=== PATIENT | female | born 1940 | race Caucasian/White ===

== ENCOUNTER 2016-12-25 01:48 | Emergency (ER) | payer MEDICARE, BC ==
[~2016-12-25] VITALS: Ht 170.2 cm; Wt 67.0 kg
[~2016-12-25 01:48] MED LIST: ASPI81TA82 PO; HYDR12.56 PO; HYDR500C PO; LEVO50TA4 PO; LOSA50TA PO
[2016-12-25 01:55] VITALS: BP 201/95; PULSE 66; RESP 18; TEMP 97.9; O2SAT 100
[2016-12-25] MEDS ORDERED: LOSA50TA PO (02:20)
[2016-12-25] MEDS ORDERED: ASPI81CH37 CHEW (02:20)
[2016-12-25] MEDS ORDERED: HYDR500C PO (02:25)
[2016-12-25] MEDS ORDERED: HYDR12.57 PO (02:25)
[2016-12-25] MEDS ORDERED: LEVO50TA4 PO (02:25)
[2016-12-25 02:50] VITALS: BP 186/84; PULSE 65; RESP 18; O2SAT 100
[2016-12-25 03:46] VITALS: BP 180/98; PULSE 72; RESP 17; O2SAT 99
--- NOTE | 2016-12-25 03:47 | PD ---
HPI Chief Complaint: Hypertension Time Seen by Provider: 03:47 Travel History International Travel<30 days: No Contact w/Intl Traveler<30days: No Traveled to known affect area: No History of Present Illness HPI 76-year-old female presents to the emergency department by private transportation the care of her spouse for evaluation of elevated blood pressure. Patient reportedly was having difficulty falling asleep this evening because of headache and feeling agitated. checked her blood pressure noted to be elevated. Using rest and relaxation techniques her blood pressure temporarily diminished to 150/90 but immediately return to markedly elevated levels of 200/90. Because of persistent high blood pressure patient is now being evaluated. Patient does not report any change in mentation, visual disturbance, change in speech, neck pain, chest pain, back pain, palpitations, shortness breath, nausea, vomiting or new upper or lower extremity numbness tingling weakness or ataxia of gait. Patient did not take any additional blood pressure medication other than her daily dose of antihypertensive losartan and HCTZ. PFSH Past Medical History Narrative Medical Hypertension, thrombocytosis, hepatitis, musculoskeletal lumbar disease; nursing notes reviewed Hx Anticoagulant Therapy: Yes (asa) Cancer: No Cardiovascular Problems: No Diabetes: No Endocrine: No Genitourinary: No Hepatitis: Yes (hep A) Hiatal Hernia: No Hypertension: Yes Immune Disorder: No Musculoskeletal: Yes (sacral and lumbar) Neurologic: No Psychiatric: No Reproductive: No Respiratory: No Thyroid Disease: No Tetanus Vaccination: < 5 Years Influenza Vaccination: No Past Surgical History AICD: No Joint Replacement: No Oral Surgery: Yes (tonsils, wisdom teeth) Pacemaker: No Other Surgery: Yes Social History Alcohol Use: No Tobacco Use: No Substance Use: No Allergies-Medications (Allergen,Severity, Reaction): Coded Allergies: Sulfa (Verified Allergy, Severe, Burning, 12/25/16) to scalp Penicillin (Verified Allergy, Mild, Rash, 12/25/16) Reported Meds & Prescriptions Reported Meds & Active Scripts Active Reported Hydrea (Hydroxyurea) 500 Mg Cap 500 Mg PO BID Hydrochlorothiazide 12.5 Mg Cap 12.5 Mg PO DAILY Levothyroxine (Levothyroxine Sodium) 50 Mcg Tab 50 Mcg PO DAILY Losartan (Losartan Potassium) 50 Mg Tab 50 Mg PO BID Aspirin Low Dose (Aspirin) 81 Mg Chew 81 Mg CHEW DAILY Review of Systems Except as stated in HPI: all other systems reviewed are Neg General / Constitutional: No: Fever, Chills Eyes: No: Visual changes HENT: Positive: Headaches, No: Neck Stiffness, Neck Pain Cardiovascular: No: Chest Pain or Discomfort Respiratory: No: Shortness of Breath Gastrointestinal: No: Nausea, Vomiting Genitourinary: No: Pelvic Pain Musculoskeletal: No: Pain Skin: No Rash Neurologic: No: Weakness Psychiatric: No: Anxiety Hematologic/Lymphatic: No: Lymph Node Enlargement Physical Exam Narrative GENERAL: SKIN: Warm and dry. HEAD: Atraumatic. Normocephalic. EYES: Pupils equal and round. No scleral icterus. No injection or drainage. ENT: No nasal bleeding or discharge. Mucous membranes pink and moist. NECK: Trachea midline. No JVD. CARDIOVASCULAR: Regular rate and rhythm. RESPIRATORY: No accessory muscle use. Clear to auscultation. Breath sounds equal bilaterally. GASTROINTESTINAL: Abdomen soft, non-tender, nondistended. Hepatic and splenic margins not palpable. MUSCULOSKELETAL: Extremities without clubbing, cyanosis, or edema. No obvious deformities. NEUROLOGICAL: Awake and alert. No obvious cranial nerve deficits. Motor grossly within normal limits. Five out of 5 muscle strength in the arms and legs. Normal speech. PSYCHIATRIC: Appropriate mood and affect; insight and judgment normal. Data Data Last Documented VS Vital Signs Date Time Temp Pulse Resp B/P Pulse Ox O2 Delivery O2 Flow Rate FiO2 12/25/16 04:46 62 16 142/74 Room Air 12/25/16 04:33 99 12/25/16 01:55 97.9 Orders ^ Saline Lock (12/25/16 03:47) Ct Brain W/O Iv Contrast(Rout) (12/25/16 ) Ondansetron Inj (Zofran Inj) (12/25/16 04:00) Clonidine (Catapres) (12/25/16 04:00) Urinalysis - C+S If Indicated (12/25/16 04:08) Labs Laboratory Tests Test 12/25/16 04:10 Urine Color STRAW Urine Turbidity CLEAR Urine pH 6.5 Urine Specific [place] 1.004 Urine Protein NEG mg/dL Urine Glucose (UA) NEG mg/dL Urine Ketones NEG mg/dL Urine Occult Blood TRACE Urine Nitrite NEG Urine Bilirubin NEG Urine Leukocyte Esterase NEG Urine RBC 0-3 /hpf Urine Squamous Epithelial 0-5 /hpf Cells Urine Transitional Epithelial /hpf Cells Microscopic Urinalysis Comment CULT NOT INDICATED MDM Medical Decision Making Medical Screen Exam Complete: Yes Emergency Medical Condition: Yes Medical Record Reviewed: Yes Interpretation(s) Urinalysis: Values within normal range Last Impressions Head CT 12/25/16 0000 Signed Impressions: Service Date/Time: Sunday, December 25, 2016 04:15 - CONCLUSION: No acute intracranial abnormality is identified. Cesar Kaur MD Differential Diagnosis Hypertension, hypertensive urgency, cephalgia, ICH, UTI Narrative Course Patient administered Zofran 4 mg along with clonidine 0.[address] brain noncontrast reveals no acute abnormalities; urinalysis normal Patient blood pressure improved 142/74. Patient does not report any headache at this time; no nausea; reports she feels symptomatically improved and is resting comfortably. Patient will be given prescription for clonidine to be used as needed for blood pressure greater than Diagnosis Primary Impression: HTN (hypertension) Qualified Code: I10 - Essential hypertension Additional Impression: Headache Qualified Code: G44.209 - Tension-type headache, not intractable, unspecified chronicity pattern Referrals: Primary Care Physician call for appointment Patient Instructions: General Instructions Additional Instructions: Continue current medications this was a prescribed Use clonidine/Catapres antihypertensive medication as prescribed on an as- needed basis for breakthrough hypertension Follow-up with your primary care provider Return to the emergency for any concerns or change in condition Med/Other Pt SpecificInfo: Prescription(s) given Scripts Clonidine 0.1 Mg Tab0.1 Mg PO Q12HR PRN (SBP>180, DBP>95) #7 TAB Ref 0 Prov:Joanie Myers MD 12/25/16 Disposition: 01 DISCHARGE HOME Condition: Stable Joanie Myers MD Dec 25, 2016 03:47
[2016-12-25] MEDS ORDERED: ONDANSETRON HCL 4 MG/2 ML VIAL IV PUSH ONE (04:00)
[2016-12-25] MEDS ORDERED: cloNIDine HCL 0.1 MG TAB PO ONE (04:00)
[2016-12-25 04:17] LABS: BLOOD, URINE TRACE (NEG); GLUCOSE,URINE NEG (NEG); KETONE, URINE NEG (NEG); NITRITE,URINE NEG (NEG); PH, URINE 6.5 (5.0-8.5)
[2016-12-25 04:33] VITALS: BP 187/88; PULSE 66; RESP 16; O2SAT 99
[2016-12-25 04:36] LABS: URINE COLOR STRAW (YELLW/STRAW)
[2016-12-25 04:39] LABS: RBC, URINE 0-3 /hpf (0-3); SQUAMOUS EPITHELIAL CELL URINE 0-5 /hpf (0-5)
--- NOTE | 2016-12-25 04:39 | RADRPT ---
EXAM DATE/TIME: 12/25/2016 04:15 [facility] COMPARISON: No previous studies available for comparison. INDICATIONS : Cephalgia. Elevated blood pressure. RADIATION DOSE: 56.32 CTDIvol (mGy) MEDICAL HISTORY : Hypertension. Hepatitis A. SURGICAL HISTORY : None. ENCOUNTER: Initial ACUITY: 4 - 6 days PAIN SCALE: 5/10 LOCATION: Bilateral temporal TECHNIQUE: Multiple contiguous axial images were obtained of the head. Using automated exposure control and adj ustment of the mA and/or kV according to patient size, radiation dose was kept as low as reasonably a chievable to obtain optimal diagnostic quality images. DICOM format image data is available electro nically for review and comparison. FINDINGS: CEREBRUM: There is mild cerebral atrophy. Ventricles are normal. There is an old lacune in the right basal gang jami. No evidence of midline shift, mass lesion, hemorrhage or acute infarction. No extra-axial flui d collections are seen. POSTERIOR FOSSA: The cerebellum and brainstem are intact. The 4th ventricle is midline. The cerebellopontine angle i s unremarkable. EXTRACRANIAL: Visualized sinuses are clear. SKULL: The calvaria is intact. No evidence of skull fracture. CONCLUSION: No acute intracranial abnormality is identified. Cesar Kaur MD on December 25, 2016 at 4:36 Board Certified Radiologist. This report was verified electronically.
[2016-12-25 04:40] LABS: COMMENT (UR) CULT NOT INDICATED; CULTURE IF INDICATED CULT NOT INDICATED
[2016-12-25 04:46] VITALS: BP 142/74; PULSE 62; RESP 16
[2016-12-25] MEDS ORDERED: CLON0.1T PO (05:00)
[2016-12-25 05:02] VITALS: BP 131/67; PULSE 61; RESP 16
== END 2016-12-25 05:10 | disposition home or self-care (01) ==
LOC: PHED 01:48
DX: I10 Essential (primary) hypertension (principal); G44.209 Tension-type headache, unspecified, not intractable; Z79.82 Long term (current) use of aspirin; Z79.899 Other long term (current) drug therapy
CPT/HCPCS: 70450; 81001; 96374; 99285; J2405

== ENCOUNTER 2016-12-31 07:00 | Inpatient (IN) | payer MEDICARE, BC ==
[2016-12-31] VITALS (8 sets, daily range): BP systolic 145–175; BP diastolic 69–81; PULSE 69–94; RESP 16–20; TEMP 97.5–98.6; O2SAT 99–100
[~2016-12-31] VITALS: Ht 168.9 cm; Wt 69.6 kg
[~2016-12-31 07:00] MED LIST changes: +ASPI81CH37 CHEW; -ASPI81TA82 PO; +CLON0.1T PO; -HYDR12.56 PO; +HYDR12.57 PO
[2016-12-31] MEDS ORDERED: SODIUM CHLOR 0.9% 1000 ML INJ 1,000 ML IV SCH (07:21)
[2016-12-31] MEDS ORDERED: ONDANSETRON HCL 4 MG/2 ML VIAL IVP ONE (07:30)
[2016-12-31] MEDS ORDERED: SODIUM CHLORIDE 0.9% FLUSH 10 ML FLUSH IV FLUSH PRN ×2 (07:30→09:45)
--- NOTE | 2016-12-31 07:39 | PD ---
HPI Chief Complaint: GI Complaint Time Seen by Provider: 07:20 Travel History International Travel<30 days: No Contact w/Intl Traveler<30days: No Traveled to known affect area: No History of Present Illness HPI PCP IS DR LOCKWOOD. PATIENT STATES THAT SHE HAS A H/O CONSTIPATION, BUT OVER PAST 3 DAYS SHE HAS TRIED LEMON JUICE AND COFFEE ENEMAS, BUT SHE HAS ONLY HAD A SMALL BM AND THEN PATIENT STARTED TO TREMBLE/QUIVER WHICH IS WHEN SHE WAS BROUGHT INTO EMERGENCY DEPT. UNRELATED BUT MENTION BY PATIENT((PATIENT IS QUITE NERVOUS, AND KEEPS STATING THAT ANTIBIOTICS DON'T WORK FOR HER, THAT SHE HAD A MRSA INFECTION WHICH SHE RECEIVED 4 DIFFERENT PCN AND "NONE WORKED" FINALLY SHE WAS GIVEN A SULFA AND HER "SCALP FELT LIKE IT WAS ON FIRE"--- PATIENT AND BOTH DENIED THAT PATIENT EVER DEVELOPED RASH/HIVES/SOB/ TONGUE OR LIP SWELLING)) PFSH Past Medical History Hx Anticoagulant Therapy: Yes (asa) Cancer: No Cardiovascular Problems: No Endocrine: No Genitourinary: No Hepatitis: Yes (hep A) Hiatal Hernia: No Hypertension: Yes Immune Disorder: No Musculoskeletal: Yes (sacral and lumbar) Neurologic: No Psychiatric: No Reproductive: No Respiratory: No Thyroid Disease: No ?: Not Past Surgical History Joint Replacement: No Oral Surgery: Yes (tonsils, wisdom teeth) Pacemaker: No Other Surgery: Yes Social History Alcohol Use: No Tobacco Use: No Substance Use: No Allergies-Medications (Allergen,Severity, Reaction): Coded Allergies: Sulfa (Verified Allergy, Severe, Burning, 12/31/16) to scalp Penicillin (Verified Allergy, Mild, Rash, 12/31/16) Reported Meds & Prescriptions Reported Meds & Active Scripts Active Lactulose Liq (Lactulose) 10 Gm/15 Ml Soln 30 Ml PO Q6H PRN Clonidine (Clonidine HCl) 0.1 Mg Tab 0.1 Mg PO Q12HR PRN Reported Hydrea (Hydroxyurea) 500 Mg Cap 500 Mg PO BID Hydrochlorothiazide 12.5 Mg Cap 12.5 Mg PO DAILY Levothyroxine (Levothyroxine Sodium) 50 Mcg Tab 50 Mcg PO DAILY Losartan (Losartan Potassium) 50 Mg Tab 50 Mg PO BID Aspirin Low Dose (Aspirin) 81 Mg Chew 81 Mg CHEW DAILY Review of Systems Except as stated in HPI: all other systems reviewed are Neg Gastrointestinal: Positive: Nausea, Abdominal Pain Physical Exam Narrative GENERAL: PATIENT NOTICED TO BE TREMBLING THROUGHOUT BODY AND HYPERVENTILATING DURING HISTORY SKIN: Warm and dry. HEAD: Atraumatic. Normocephalic. EYES: Pupils equal and round. No scleral icterus. No injection or drainage. ENT: No nasal bleeding or discharge. Mucous membranes pink and moist. NECK: Trachea midline. No JVD. CARDIOVASCULAR: Regular rate and rhythm. RESPIRATORY: No accessory muscle use. Clear to auscultation. Breath sounds equal bilaterally. GASTROINTESTINAL: Abdomen soft, non-tender, nondistended. Hepatic and splenic margins not palpable. MUSCULOSKELETAL: Extremities without clubbing, cyanosis, or edema. No obvious deformities. NEUROLOGICAL: Awake and alert. No obvious cranial nerve deficits. Motor grossly within normal limits. Five out of 5 muscle strength in the arms and legs. Normal speech. PSYCHIATRIC: Appropriate mood and affect; insight and judgment normal. Data Data Last Documented VS Vital Signs Date Time Temp Pulse Resp B/P Pulse Ox O2 Delivery O2 Flow Rate FiO2 12/31/16 07:43 99 Room Air 12/31/16 07:39 97.5 12/31/16 07:08 78 20 175/76 Orders Complete Blood Count With Diff (12/31/16 07:21) Comprehensive Metabolic Panel (12/31/16 07:21) Lipase (12/31/16 07:21) Prothrombin Time / Inr (Pt) (12/31/16 07:21) Act Partial Throm Time (Ptt) (12/31/16 07:21) Urinalysis - C+S If Indicated (12/31/16 07:21) Iv Access Insert/Monitor (12/31/16 07:21) Ecg Monitoring (12/31/16 07:21) Oximetry (12/31/16 07:21) NPO (12/31/16 07:21) Ondansetron Inj (Zofran Inj) (12/31/16 07:30) Sodium Chlor 0.9% 1000 Ml Inj (Ns 1000 M (12/31/16 07:21) Sodium Chloride 0.9% Flush (Ns Flush) (12/31/16 07:30) Electrocardiogram (12/31/16 07:21) Troponin I (12/31/16 07:21) Ct Abd/Pel W/O Iv Contrast (12/31/16 07:21) Lorazepam Inj (Ativan Inj) (12/31/16 07:45) Potassium Chlor 20 Meq Premix (Kcl 20 Me (12/31/16 08:45) Sodium Chlor 0.9% 1000 Ml Inj (Ns 1000 M (12/31/16 08:45) Iv Access Insert/Monitor (12/31/16 08:41) Labs Laboratory Tests Test 12/31/16 12/31/16 07:30 07:37 Urine Collection Type CLEAN CATCH Urine Color YELLOW Urine Turbidity CLEAR Urine pH 7.0 Urine Specific [place] 1.020 Urine Protein 100 mg/dL Urine Glucose (UA) NEG mg/dL Urine Ketones 40 mg/dL Urine Occult Blood TRACE Urine Nitrite NEG Urine Bilirubin NEG Urine Leukocyte Esterase NEG Urine RBC 0-3 /hpf Urine Squamous Epithelial 0-5 /hpf Cells Microscopic Urinalysis Comment CULT NOT INDICATED Urine Collection Time "30 White Blood Count 5.7 TH/MM3 Red Blood Count 3.48 MIL/MM3 Hemoglobin 13.4 GM/DL Hematocrit 40.1 % Mean Corpuscular Volume 115.0 FL Mean Corpuscular Hemoglobin 38.4 PG Mean Corpuscular Hemoglobin 33.4 % Concent Red Cell Distribution Width 11.4 % Platelet Count 365 TH/MM3 Mean Platelet Volume 7.1 FL Neutrophils (%) (Auto) 78.3 % Lymphocytes (%) (Auto) 15.7 % Monocytes (%) (Auto) 5.5 % Eosinophils (%) (Auto) 0.1 % Basophils (%) (Auto) 0.4 % Neutrophils # (Auto) 4.4 TH/MM3 Lymphocytes # (Auto) 0.9 TH/MM3 Monocytes # (Auto) 0.3 TH/MM3 Eosinophils # (Auto) 0.0 TH/MM3 Basophils # (Auto) 0.0 TH/MM3 CBC Comment DIFF FINAL Differential Comment Prothrombin Time 10.9 SEC Prothromb Time International 1.0 RATIO Ratio Activated Partial 27.5 SEC Thromboplast Time Sodium Level 123 MEQ/L Potassium Level 2.7 MEQ/L Chloride Level 85 MEQ/L Carbon Dioxide Level 21.4 MEQ/L Anion Gap 17 MEQ/L Blood Urea Nitrogen 9 MG/DL Creatinine 0.90 MG/DL Estimat Glomerular Filtration 61 ML/MIN Rate Random Glucose 148 MG/DL Calcium Level 9.5 MG/DL Total Bilirubin 4.1 MG/DL Aspartate Amino Transf 21 U/L (AST/SGOT) Alanine Aminotransferase 26 U/L (ALT/SGPT) Alkaline Phosphatase 84 U/L Troponin I LESS THAN 0.02 NG/ML Total Protein 8.1 GM/DL Albumin 4.4 GM/DL Lipase 213 U/L MDM Medical Decision Making Medical Screen Exam Complete: Yes Emergency Medical Condition: Yes Medical Record Reviewed: Yes Interpretation(s) NSR 82, LAE, MOTION ARTIFACT SO DIFFICULT TO ASSESS IF WHAT APPEARS TO BE ST DEPRESSIONS ARE INDEED SUCH, HOWEVER THERE IS NO STEMI PATTERN AT THIS POINT Differential Diagnosis SBO V VOLVULUS V ILEUS V CONSTIPATION Narrative Course ONCE PATIENT RECEIVED ATIVAN, TREMBLING STOPPED AND NAUSEA STOPPED WELL. MOST LIKELY SYMPTOMS DUE TO STRESS REACTION/ADRENALINE RELEASE. CBC WNL, AND CT ONLY POSITIVE FOR GALLSTONE BUT NEG FOR SBO/ILEUS/VOLVULUS AT THIS POINT AND SHOWS AN EMPTY RECTAL VAULT SO NO E/O FECAL IMPACTION......HOWEVER, PROBABLY DUE TO OVERLY AGGRESSIVE MULTIPLE ENEMAS BY PATIENT MAY HAVE CONTRIBUTED TO HYPONATREMIA AND HYPOKALEMIA FOR WHICH SHE WILL BE OBSERVED Diagnosis Primary Impression: ACUTE HYPONATREMIA Additional Impression: ACUTE HYPOKALEMIA Admitting Information Admitting Physician Requests: Observation Patient Instructions: General Instructions Condition: Stable Bernard Haro MD Dec 31, 2016 07:38 Bernard Haro MD Dec 31, 2016 07:38
[2016-12-31 07:45] LABS: AUTOMATED NEUTROPHIL # 4.4 TH/MM3 (1.8-7.7); BASOPHIL % 0.4 % (0.0-2.0); EOSINOPHIL % 0.1 % (0.0-4.0); HEMATOCRIT 40.1 % (35.0-46.0); LYMPH % 15.7 % (9.0-44.0); LYMPHOCYTE # 0.9 TH/MM3 (1.0-4.8); MEAN CORPUSCULAR HEMOGLOBIN 38.4 PG (27.0-34.0); MEAN CORPUSCULAR HGB CONC 33.4 % (32.0-36.0); MONO % 5.5 % (0.0-8.0); NEUT % 78.3 % (16.0-70.0); PLATELET COUNT 365 TH/MM3 (150-450); RED BLOOD COUNT 3.48 MIL/MM3 (4.00-5.30); RED CELL DISTRIBUTION WIDTH 11.4 % (11.6-17.2); WHITE BLOOD COUNT 5.7 TH/MM3 (4.0-11.0)
[2016-12-31] MEDS ORDERED: LORazepam 2 MG/ML VIAL IV PUSH ONE (07:45)
[2016-12-31 07:46] LABS: HEMO FLAGS DIFF FINAL
[2016-12-31 07:57] LABS: APTT (PATIENT) 27.5 SEC (24.3-30.1); PROTHROMBIN TIME - PATIENT 10.9 SEC (9.8-11.6)
--- NOTE | 2016-12-31 08:01 | RADRPT ---
EXAM DATE/TIME: 12/31/2016 07:38 [facility] COMPARISON: No previous studies available for comparison. INDICATIONS : Nausea and vomiting with diffuse abdominal pressure. ORAL CONTRAST: No oral contrast ingested. RADIATION DOSE: 7.11 CTDIvol (mGy) MEDICAL HISTORY : Hypertension. Hepatitis A. Anti-coagulant therapy. SURGICAL HISTORY : None. ENCOUNTER: Initial ACUITY: 1 day PAIN SCALE: 3/10 LOCATION: abdomen TECHNIQUE: Volumetric scanning of the abdomen and pelvis was performed. Using automated exposure control and ad justment of the mA and/or kV according to patient size, radiation dose was kept as low as reasonably achievable to obtain optimal diagnostic quality images. DICOM format image data is available electro nically for review and comparison. FINDINGS: The lung measures are clear. The liver, spleen, pancreas and adrenals are unremarkable. Calcified gallstones are present in the prominent gallbladder. Small 1 cm calcified mass is present upper pole of the right kidney. The left kidney is unremarkable Moderate vascular calcifications are evident Pelvic contents show scattered diverticuli without inflammatory changes or free fluid. There is no intra-hernia Moderate degenerative changes are present in the lower lumbar spine with a bone island in the right i lium. CONCLUSION: 1. Gallstones prominent gallbladder without inflammatory changes 2. Moderate vascular calcifications 3. Degenerative changes lumbar spine. David Coyne MD FACR on December 31, 2016 at 7:56 Board Certified Radiologist. This report was verified electronically.
[2016-12-31 08:13] LABS: BLOOD, URINE TRACE (NEG); GLUCOSE,URINE NEG (NEG); KETONE, URINE 40 mg/dL (NEG); NITRITE,URINE NEG (NEG)
[2016-12-31 08:15] LABS: METHOD OF COLLECTION CLEAN CATCH; URINE COLOR YELLOW (YELLW/STRAW)
[2016-12-31 08:16] LABS: COMMENT (UR) CULT NOT INDICATED; CULTURE IF INDICATED CULT NOT INDICATED; RBC, URINE 0-3 /hpf (0-3); SQUAMOUS EPITHELIAL CELL URINE 0-5 /hpf (0-5)
[2016-12-31 08:39] LABS: ALKALINE PHOSPHATASE 84 U/L (45-117); ALT (GPT) 26 U/L (10-53); ANION GAP 17 MEQ/L (5-15); AST (GOT) 21 U/L (15-37); BICARBONATE 21.4 MEQ/L (21.0-32.0); BLOOD UREA NITROGEN 9 MG/DL (7-18); CHLORIDE 85 MEQ/L (98-107); GLOMERULAR FILTRATION RATE 61 ML/MIN (>89); TOTAL BILIRUBIN ADULT 4.1 MG/DL (0.2-1.0)
[2016-12-31 08:41] LABS: SODIUM (NA) 123 MEQ/L (136-145)
[2016-12-31] MEDS ORDERED: LACT10SO PO (08:41)
[2016-12-31 08:42] LABS: POTASSIUM 2.7 MEQ/L (3.5-5.1)
[2016-12-31] MEDS ORDERED: SODIUM CHLOR 0.9% 1000 ML INJ 1,000 ML IV ONE (08:45)
[2016-12-31] MEDS ORDERED: POTASSIUM CHLOR 20 MEQ PREMIX 100 ML IV ONE (08:45)
[2016-12-31] MEDS: SODIUM CHLOR 0.9% 1000 ML INJ 1,000 ML IV SCH ×2 (09:33→20:08)
[2016-12-31] MEDS ORDERED: NALOXONE HCL 0.4 MG/ML AMP IV PRN (09:45)
[2016-12-31] MEDS ORDERED: ACETAMINOPHEN 325 MG TAB PO PRN (09:45)
[2016-12-31] MEDS ORDERED: POTASSIUM CHLORIDE 20 MEQ CONTROLLED RELEASE TAB PO ONE (09:45)
[2016-12-31] MEDS ORDERED: ONDANSETRON HCL 4 MG/2 ML VIAL IVP PRN (09:45)
[2016-12-31] MEDS ORDERED: POTASSIUM PHOSPHATE INJ 30 MMOL in SODIUM CHLOR 0.9% 250 ML INJ 250 ML IV ONE (10:00)
[2016-12-31] MEDS: HEPARIN SODIUM - SQ 10,000 UNITS/ML VIAL SQ SCH ×2 (11:20→21:23)
--- NOTE | 2016-12-31 11:30 | MH ---
cc: JIMBO WYNN MD DATE OF ADMISSION: 12/31/2016 CHIEF COMPLAINT: Nausea and vomiting. HISTORY OF PRESENT ILLNESS: This is a 76-year female with past medical-surgical history significant for lower back pain, history of tonsils removed. [place] teeth removed, history of hypertension, hypothyroidism and history of hepatitis A in the past. She came to the [facility] Emergency Room complaining of nausea and vomiting. She said she was not able to keep anything down. She has had constipation for the last three days. She tried lemon juice. She has had only a small bowel movement. She has some mild abdominal discomfort but no abdominal pain. No fever or chills or cough. No shortness of breath or chest pain. No blood in stool or black stool. No urinary tract infection symptoms. No neurological symptoms. Other than that, nothing significant. PAST MEDICAL HISTORY / PAST SURGICAL HISTORY: As dictated above. SOCIAL HISTORY: She denies smoking, drinking or taking any drugs. She lives at home with her . She is a retired schoolteacher. FAMILY HISTORY: Nothing significant. ALLERGIES: 1. SULFA. 2. PENICILLIN. MEDICATIONS: 1. Lactulose 10 mL q. 6 hours PRN constipation. 2. Clonidine 0.1 milligrams p.o. twice a day. 3. Hydroxyurea 500 milligrams twice a day. 4. Hydrochlorothiazide 12.5 milligrams p.o. daily. 5. Lotrisone 850 micrograms p.o. daily. 6. Losartan 50 milligrams p.o. twice a day. 7. Aspirin 81 milligrams p.o. daily. REVIEW OF SYSTEMS: Positive for abdominal discomfort, nausea, vomiting, feeling weak and tired. All other review of systems are negative. PHYSICAL EXAMINATION: GENERAL: This is a 76-year-old female lying on the bed not in acute distress. VITAL SIGNS: Temperature 97.5, heart rate 78, respirations 20, blood pressure 175/76, O2 saturation 99% room air. HEAD, EYES, EARS, NOSE, THROAT: Normocephalic and atraumatic. Extraocular muscles intact. Pupils equal, round and reactive to light and accommodation. Oral mucosa moist. NECK: The neck is supple. No visible thyromegaly or neck mass. Trachea is central. CARDIOVASCULAR: Regular rate and rhythm. RESPIRATORY: Clear to auscultation bilaterally. ABDOMEN: Abdomen soft and nontender. Bowel sounds audible. EXTREMITIES: No cyanosis or clubbing. Full range of motion of all extremities. NEUROLOGIC: Awake, alert and oriented times four. No focal deficits. SKIN: Warm and dry. PSYCHIATRIC: The patient is cooperative. Mood and affect are normal. LABS: CBC is totally unremarkable except for RBC count of 3.4 (low). MCV 115. MCH is 38.4. RDW is 11.4. Basic metabolic profile totally unremarkable except for sodium of 123 (low), potassium 2.7 (low), chloride 85 (low), anion gap 17. GFR 61. Glucose 148. Troponin I less than 0.02. Liver function tests are normal except for total bilirubin of 4.1 (high). Lipase is normal. Pt 10.9, INR 1.0, PTT 27.5. Urine examination showed a high protein 100 (high), trace of occult blood. IMAGING STUDIES: CT abdomen and pelvis was done and shows gallstones and prominent gallbladder without inflammatory changes, moderate vascular calcification, degenerative changes lumbar spine. ASSESSMENT AND PLAN: 1. This is a 77-year-old female who presented to the emergency room and diagnosed with nausea and vomiting with mild abdominal discomfort. The patient has gallstones. I will consult general surgery for their recommendations for gallstones and also gastroenterology. 2. Hypokalemia. Will replace potassium. 3. Hyponatremia. Will replace the sodium. 4. History of hypertension. Continue home medications. 5. History of hypothyroidism. Continue with levothyroxine. Check TSH and free T4. 6. DVT prophylaxis with heparin 5000 units subcutaneous twice a day. 7. GI prophylaxis. Protonix 40 milligrams p.o. daily. We are going to manage the patient on a daily basis and make recommendations on a daily basis. Jimbo Wynn MD EA/OMKAR /10:44 AM /11:09 AM
[2016-12-31] MEDS ORDERED: MAGNESIUM CITRATE SOLN 300 ML BTL PO ONE (12:15)
--- NOTE | 2016-12-31 12:15 | PD.CONS ---
HPI Service General surgery Consult Requested By Dr. Block Reason for Consult Gallstones Primary Care Physician Russell Poon MD History of Present Illness The patient is a 76-year-old female with a long-standing history of constipation who presents with a history of 2 weeks of nausea and vomiting since yesterday. She has not had a bowel movement since when she had a "colonic". It sounds like she is may be dependent on enemas for bowel movements. She has a history of hepatitis a and she and her say that she has "yellow jaundiced". They state that her skin sometimes appears yellow. She was evaluated in the emergency department and noted to have significant electrolyte abnormalities. Also her bilirubin was 4 with otherwise normal LFTs. CT scan of the abdomen and pelvis was essentially normal aside from gallstones. She denies epigastric or right upper quadrant pain. Of note, the patient states the current symptoms she is having are exactly consistent with previous episodes of constipation although slightly worse. Review of Systems Constitutional: DENIES: Fever, Chills Eyes: DENIES: Eye inflammation, Eye pain Respiratory: DENIES: Cough, Shortness of breath Cardiovascular: DENIES: Chest pain, Palpitations Gastrointestinal: COMPLAINS OF: Constipation, Nausea Integumentary: DENIES: Pruritus, Rash Neurologic: DENIES: Paresthesias, Seizures Past Family Social History Past Medical History Chronic constipation Hypertension Hepatitis A Hypothyroidism Past Surgical History Tonsillectomy Reported Medications Reported Meds & Active Scripts Active Clonidine (Clonidine HCl) 0.1 Mg Tab 0.1 Mg PO Q12HR PRN Reported Hydrea (Hydroxyurea) 500 Mg Cap 500 Mg PO BID Hydrochlorothiazide 12.5 Mg Cap 12.5 Mg PO DAILY Levothyroxine (Levothyroxine Sodium) 50 Mcg Tab 50 Mcg PO DAILY Losartan (Losartan Potassium) 50 Mg Tab 50 Mg PO BID Aspirin Low Dose (Aspirin) 81 Mg Chew 81 Mg CHEW DAILY Allergies: Coded Allergies: Sulfa (Verified Allergy, Severe, Burning, 12/31/16) to scalp Penicillin (Verified Allergy, Mild, Rash, 12/31/16) Active Ordered Medications Current Medications Medications (Trade) Dose Ordered Sig/Stacey Route Start Time Stop Time Status Last Admin Sodium Chloride 1,000 ml @ 125 mls/hr Q8H IV 12/31/16 07:21 12/31/16 15:20 12/31/16 08:03 (NS 1000 ml Inj) 1,000 ml @ 100 mls/hr Q10H IV 12/31/16 09:33 12/31/16 09:33 (NS Flush) 2 ml UNSCH PRN IV FLUSH 12/31/16 09:45 (NS Flush) 2 ml BID IV FLUSH 12/31/16 21:00 (Tylenol) 650 mg Q4H PRN PO 12/31/16 09:45 (Zofran Inj) 4 mg Q6H PRN IVP 12/31/16 09:45 (Heparin Inj) 5,000 units Q12H SQ 12/31/16 10:00 12/31/16 11:20 Naloxone HCl 0.4 mg 0.4 mg UNSCH PRN IV 12/31/16 09:45 (Potassium Phosphate Inj/NS 250 ml Inj) 260 ml @ 43.333 mls/ hr ONCE ONCE IV 12/31/16 10:00 12/31/16 15:59 Family History Noncontributory Social History No alcohol tobacco or drug use. She is and her is present. Physical Exam Vital Signs Vital Signs Date Time Temp Pulse Resp B/P Pulse Ox O2 Delivery O2 Flow Rate FiO2 12/31/16 11:23 82 16 152/69 99 12/31/16 07:43 99 Room Air 12/31/16 07:39 97.5 12/31/16 07:08 78 20 175/76 99 Physical Exam GENERAL: Awake and alert. No acute distress. Cooperative. HEAD: Normocephalic. Atraumatic. EYES: Pupils equal round and reactive to light bilaterally. CHEST: Lungs clear to auscultation bilaterally with no wheezing or rhonchi. No respiratory distress. CARDIOVASCULAR: Regular rate and rhythm. ABDOMEN: Mild epigastric tenderness to palpation. Otherwise soft and nontender. Rectal: No masses. Minimal stool. Sphincter tone normal. EXTREMITIES: No cyanosis or edema. SKIN: Warm, dry, mild jaundice Laboratory Laboratory Tests Test 12/31/16 12/31/16 07:30 07:37 Urine Collection Type CLEAN CATCH Urine Color YELLOW Urine Turbidity CLEAR Urine pH 7.0 Urine Specific [place] 1.020 Urine Protein 100 Urine Glucose (UA) NEG Urine Ketones 40 Urine Occult Blood TRACE Urine Nitrite NEG Urine Bilirubin NEG Urine Leukocyte Esterase NEG Urine RBC 0-3 Urine Squamous Epithelial 0-5 Cells Microscopic Urinalysis Comment CULT NOT INDICATED Urine Collection Time 07"30 White Blood Count 5.7 Red Blood Count 3.48 Hemoglobin 13.4 Hematocrit 40.1 Mean Corpuscular Volume 115.0 Mean Corpuscular Hemoglobin 38.4 Mean Corpuscular Hemoglobin 33.4 Concent Red Cell Distribution Width 11.4 Platelet Count 365 Mean Platelet Volume 7.1 Neutrophils (%) (Auto) 78.3 Lymphocytes (%) (Auto) 15.7 Monocytes (%) (Auto) 5.5 Eosinophils (%) (Auto) 0.1 Basophils (%) (Auto) 0.4 Neutrophils # (Auto) 4.4 Lymphocytes # (Auto) 0.9 Monocytes # (Auto) 0.3 Eosinophils # (Auto) 0.0 Basophils # (Auto) 0.0 CBC Comment DIFF FINAL Differential Comment Prothrombin Time 10.9 Prothromb Time International 1.0 Ratio Activated Partial 27.5 Thromboplast Time Sodium Level 123 Potassium Level 2.7 Chloride Level 85 Carbon Dioxide Level 21.4 Anion Gap 17 Blood Urea Nitrogen 9 Creatinine 0.90 Estimat Glomerular Filtration 61 Rate Random Glucose 148 Calcium Level 9.5 Magnesium Level 1.5 Total Bilirubin 4.1 Aspartate Amino Transf 21 (AST/SGOT) Alanine Aminotransferase 26 (ALT/SGPT) Alkaline Phosphatase 84 Troponin I LESS THAN 0.02 Total Protein 8.1 Albumin 4.4 Lipase 213 Thyroid Stimulating Hormone 5.090 3rd Gen Result Diagram: 12/31/1637 12/31/16736 Imaging Last Impressions Abdomen/Pelvis CT 12/31/16720 Signed Impressions: Service Date/Time: Saturday, December 31, 2016 07:38 - CONCLUSION: 1. Gallstones prominent gallbladder without inflammatory changes 2. Moderate vascular calcifications 3. Degenerative changes lumbar spine. David Coyne MD FACR Assessment and Plan Assessment and Plan 76-year-old female with nausea vomiting and constipation. I reviewed the CT images. Gallstones: I will check an ultrasound of the gallbladder to see if there is associated inflammation. She does have mild epigastric pain and it is possible her symptoms are secondary to gallbladder disease, although she states her symptoms are exactly similar to previous episodes of constipation. She has elevated bilirubin but not the other LFTs. Hyperbilirubinemia: Unsure of the etiology. Possibly but not likely related to gallbladder disease. May require further workup per gastroenterology. Constipation: No stool in the rectal vault probably secondary to multiple enemas. I will order magnesium citrate and place her on clear liquids. Delmar Ann MD Dec 31, 2016 12:15
--- NOTE | 2016-12-31 14:34 | PD.CONS ---
HPI History of Present Illness This is a 76 year old female who has for the past week had multiple problems including blood pressure that was elevated nausea and vomiting abdominal discomfort the patient denies any abdominal pain the abdominal discomfort is reported in the midabdomen and it does move about she also reports chills but no fever she also reports diarrhea and constipation but no melena or hematochezia and no mucus or blood in her stools she had been in her usual state of health up until earlier in the week she has never had any liver problems in the past on admission through the ER she is noted to have gallstones and her bilirubin is slightly elevated otherwise her CAT scan was unremarkable and most notable on labs is the hyponatremia and hypokalemia PFSH Past Medical History Chronic constipation Hypertension Hepatitis A Hypothyroidism Past Surgical History Tonsillectomy Coded Allergies: Sulfa (Verified Allergy, Severe, Burning, 12/31/16) to scalp Penicillin (Verified Allergy, Mild, Rash, 12/31/16) Medications Clonidine (Clonidine HCl) 0.1 Mg Tab 0.1 Mg PO Q12HR PRN Hydrea (Hydroxyurea) 500 Mg Cap 500 Mg PO BID Hydrochlorothiazide 12.5 Mg Cap 12.5 Mg PO DAILY Levothyroxine (Levothyroxine Sodium) 50 Mcg Tab 50 Mcg PO DAILY Losartan (Losartan Potassium) 50 Mg Tab 50 Mg PO BID Aspirin Low Dose (Aspirin) 81 Mg Chew 81 Mg CHEW DAILY Family History Noncontributory Social History Negative for alcohol or tobacco Review of Systems ROS Review of systems Patient denies any headache dizziness blurry vision, denies any chest pain shortness of breath cough fever chills, Denies any palpitations or fatigue denies any polyuria dysuria hematuria, denies any numbness tingling or weakness, denies any skin rash pruritus or jaundice, denies any easy bruising or bleeding tendency, denies any recent change in mood GI Exam Vitals I&O Vital Signs Date Time Temp Pulse Resp B/P Pulse Ox O2 Delivery O2 Flow Rate FiO2 12/31/16 12:00 97.5 73 18 168/80 100 12/31/16 11:23 82 16 152/69 99 12/31/16 07:43 99 Room Air 12/31/16 07:39 97.5 12/31/16 07:08 78 20 175/76 99 I/O 7/29/17 7/29/12/30/16 12/31/16 12/31/16 12/31/16 07:00 15:00 23:00 07:00 15:00 23:00 Intake Total 1200 ml Balance 1200 ml Intake IV Total 1200 ml # Voids 1 Imaging Last 48 hours Impressions Abdomen/Pelvis CT 12/31/16 0721 Signed Impressions: Service Date/Time: Saturday, December 31, 2016 07:38 - CONCLUSION: 1. Gallstones prominent gallbladder without inflammatory changes 2. Moderate vascular calcifications 3. Degenerative changes lumbar spine. David Coyne MD FACR Laboratory Test 12/31/16 12/31/16 07:30 07:37 Urine Collection Type CLEAN CATCH Urine Color YELLOW Urine Turbidity CLEAR Urine pH 7.0 Urine Specific [place] 1.020 Urine Protein 100 mg/dL Urine Glucose (UA) NEG mg/dL Urine Ketones 40 mg/dL Urine Occult Blood TRACE Urine Nitrite NEG Urine Bilirubin NEG Urine Leukocyte Esterase NEG Urine RBC 0-3 /hpf Urine Squamous Epithelial 0-5 /hpf Cells Microscopic Urinalysis Comment CULT NOT INDICATED Urine Collection Time "30 White Blood Count 5.7 TH/MM3 Red Blood Count 3.48 MIL/MM3 Hemoglobin 13.4 GM/DL Hematocrit 40.1 % Mean Corpuscular Volume 115.0 FL Mean Corpuscular Hemoglobin 38.4 PG Mean Corpuscular Hemoglobin 33.4 % Concent Red Cell Distribution Width 11.4 % Platelet Count 365 TH/MM3 Mean Platelet Volume 7.1 FL Neutrophils (%) (Auto) 78.3 % Lymphocytes (%) (Auto) 15.7 % Monocytes (%) (Auto) 5.5 % Eosinophils (%) (Auto) 0.1 % Basophils (%) (Auto) 0.4 % Neutrophils # (Auto) 4.4 TH/MM3 Lymphocytes # (Auto) 0.9 TH/MM3 Monocytes # (Auto) 0.3 TH/MM3 Eosinophils # (Auto) 0.0 TH/MM3 Basophils # (Auto) 0.0 TH/MM3 CBC Comment DIFF FINAL Differential Comment Prothrombin Time 10.9 SEC Prothromb Time International 1.0 RATIO Ratio Activated Partial 27.5 SEC Thromboplast Time Sodium Level 123 MEQ/L Potassium Level 2.7 MEQ/L Chloride Level 85 MEQ/L Carbon Dioxide Level 21.4 MEQ/L Anion Gap 17 MEQ/L Blood Urea Nitrogen 9 MG/DL Creatinine 0.90 MG/DL Estimat Glomerular Filtration 61 ML/MIN Rate Random Glucose 148 MG/DL Calcium Level 9.5 MG/DL Magnesium Level 1.5 MG/DL Total Bilirubin 4.1 MG/DL Aspartate Amino Transf 21 U/L (AST/SGOT) Alanine Aminotransferase 26 U/L (ALT/SGPT) Alkaline Phosphatase 84 U/L Troponin I LESS THAN 0.02 NG/ML Total Protein 8.1 GM/DL Albumin 4.4 GM/DL Lipase 213 U/L Thyroid Stimulating Hormone 5.090 uIU/ML 3rd Gen Physical Examination HEENT: Pupils round and reactive to light; normocephalic; atraumatic; no jaundice. Throat is clear. NECK: Neck is supple, no JVD, no lymphadenopathy. CHEST: Chest is clear to auscultation and percussion. CARDIAC: Regular rate and rhythm with no murmur gallop or rubs. ABDOMEN: Soft, nondistended, nontender; no hepatosplenomegaly; bowel sounds are present in all four quadrants. EXTREMITIES: No clubbing, cyanosis, or edema. SKIN: Normal; no rash; no jaundice. DIGITAL PERFORMANCE ANALYST: No focal deficits; alert and oriented times three. Assessment and Plan Plan Abdominal discomfort with complaints of nausea and vomiting with alternating diarrhea and constipation with reported chills but no fever with noted hyperbilirubinemia but unremarkable CT except for gallstones with hyponatremia and hypokalemia At this point will proceed with an upper endoscopy We'll also obtain an MRCP Monitor labs We will need to correct electrolytes Further recommendations shall depend on the findings of the above Marshall Peres MD Dec 31, 2016 14:34
--- NOTE | 2016-12-31 15:20 | EKG ---
Date Performed: 12/31/2016 Time Performed: 07:33:08 PTAGE: 76 years EKG: Sinus rhythm POSSIBLE LEFT ATRIAL ENLARGEMENT BORDERLINE LEFT AXIS DEVIATION MODERATE ST DEPRESSION ABNORMAL ECG NO PREVIOUS TRACING DOCTOR: Scar Bae Interpretating Date/Time 12/31/2016 15:18:40
[2016-12-31 17:14] LABS: FREE T4 1.91 NG/DL (0.76-1.46)
--- NOTE | 2016-12-31 20:24 | PD.CONS ---
HPI Service Nephrology Consult Requested By Dr. Block Reason for Consult Hypokalemia and hyponatremia Primary Care Physician Russell Poon MD History of Present Illness Patient is 76-year-old white female with history of hypertension who had been having nausea and vomiting and could not keep anything down, a CAT scan in the emergency showed gallstones. She is not having any abdominal pain, she is on IV hydration normal saline with potassium replacement. Past Family Social History Allergies: Coded Allergies: Sulfa (Verified Allergy, Severe, Burning, 12/31/16) to scalp Penicillin (Verified Allergy, Mild, Rash, 12/31/16) Past Medical History Chronic constipation Hypertension Hepatitis A Hypothyroidism Past Surgical History Tonsillectomy Reported Medications Reported Meds & Active Scripts Active Clonidine (Clonidine HCl) 0.1 Mg Tab 0.1 Mg PO Q12HR PRN Reported Hydrea (Hydroxyurea) 500 Mg Cap 500 Mg PO BID Hydrochlorothiazide 12.5 Mg Cap 12.5 Mg PO DAILY Levothyroxine (Levothyroxine Sodium) 50 Mcg Tab 50 Mcg PO DAILY Losartan (Losartan Potassium) 50 Mg Tab 50 Mg PO BID Aspirin Low Dose (Aspirin) 81 Mg Chew 81 Mg CHEW DAILY Active Ordered Medications Current Medications Medications (Trade) Dose Ordered Sig/Stacey Route Start Time Stop Time Status Last Admin (NS 1000 ml Inj) 1,000 ml @ 100 mls/hr Q10H IV 12/31/16 09:33 12/31/16 20:08 (NS Flush) 2 ml UNSCH PRN IV FLUSH 12/31/16 09:45 (NS Flush) 2 ml BID IV FLUSH 12/31/16 21:00 (Tylenol) 650 mg Q4H PRN PO 12/31/16 09:45 (Zofran Inj) 4 mg Q6H PRN IVP 12/31/16 09:45 (Heparin Inj) 5,000 units Q12H SQ 12/31/16 10:00 12/31/16 11:20 (Narcan Inj) 0.4 mg UNSCH PRN IV 12/31/16 09:45 Family History Noncontributory Social History Denies smoking or alcohol use Physical Exam Vital Signs Vital Signs Date Time Temp Pulse Resp B/P Pulse Ox O2 Delivery O2 Flow Rate FiO2 12/31/16 16:00 84 12/31/16 16:00 97.7 71 18 145/75 100 7/30/17 12:00 94 12/31/16 12:00 97.5 73 18 168/80 100 12/31/16 11:23 82 16 152/69 99 12/31/16 07:43 99 Room Air 12/31/16 07:39 97.5 12/31/16 07:08 78 20 175/76 99 Physical Exam GENERAL: Well-nourished, well-developed patient. SKIN: Warm and dry. HEAD: Normocephalic. EYES: No scleral icterus. No injection or drainage. NECK: Supple, trachea midline. No JVD or lymphadenopathy. CARDIOVASCULAR: Regular rate and rhythm without murmurs, gallops, or rubs. RESPIRATORY: Breath sounds equal bilaterally. No accessory muscle use. GASTROINTESTINAL: Abdomen soft, non-tender, nondistended. EXTREMITIES: No cyanosis, or edema. NEUROLOGICAL: Awake, alert, and oriented x 3. Non-focal. Laboratory Laboratory Tests Test 12/31/16 12/31/16 12/31/16 07:30 07:37 10:31 Urine Collection Type CLEAN CATCH Urine Color YELLOW Urine Turbidity CLEAR Urine pH 7.0 Urine Specific [place] 1.020 Urine Protein 100 Urine Glucose (UA) NEG Urine Ketones 40 Urine Occult Blood TRACE Urine Nitrite NEG Urine Bilirubin NEG Urine Leukocyte Esterase NEG Urine RBC 0-3 Urine Squamous Epithelial 0-5 Cells Microscopic Urinalysis Comment CULT NOT INDICATED Urine Collection Time 07"30 White Blood Count 5.7 Red Blood Count 3.48 Hemoglobin 13.4 Hematocrit 40.1 Mean Corpuscular Volume 115.0 Mean Corpuscular Hemoglobin 38.4 Mean Corpuscular Hemoglobin 33.4 Concent Red Cell Distribution Width 11.4 Platelet Count 365 Mean Platelet Volume 7.1 Neutrophils (%) (Auto) 78.3 Lymphocytes (%) (Auto) 15.7 Monocytes (%) (Auto) 5.5 Eosinophils (%) (Auto) 0.1 Basophils (%) (Auto) 0.4 Neutrophils # (Auto) 4.4 Lymphocytes # (Auto) 0.9 Monocytes # (Auto) 0.3 Eosinophils # (Auto) 0.0 Basophils # (Auto) 0.0 CBC Comment DIFF FINAL Differential Comment Prothrombin Time 10.9 Prothromb Time International 1.0 Ratio Activated Partial 27.5 Thromboplast Time Sodium Level 123 Potassium Level 2.7 Chloride Level 85 Carbon Dioxide Level 21.4 Anion Gap 17 Blood Urea Nitrogen 9 Creatinine 0.90 Estimat Glomerular Filtration 61 Rate Random Glucose 148 Calcium Level 9.5 Magnesium Level 1.5 Total Bilirubin 4.1 Aspartate Amino Transf 21 (AST/SGOT) Alanine Aminotransferase 26 (ALT/SGPT) Alkaline Phosphatase 84 Troponin I LESS THAN 0.02 Total Protein 8.1 Albumin 4.4 Lipase 213 Free Thyroxine 1.91 Thyroid Stimulating Hormone 5.090 3rd Gen Urine Osmolality 128 Result Diagram: 12/31/1637 12/31/1637 Imaging Last Impressions Abdomen/Pelvis CT 12/31/16720 Signed Impressions: Service Date/Time: Sunday, December 31, 2016 07:38 - CONCLUSION: 1. Gallstones prominent gallbladder without inflammatory changes 2. Moderate vascular calcifications 3. Degenerative changes lumbar spine. David Coyne MD FACR Assessment and Plan Problem List: (1) Hyponatremia Plan: This is due to dehydration from nausea and vomiting and diuretic thiazide type continue replace normal saline at 100 cc an hour Monitor BMP (2) Hypokalemia Plan: Patient has given replacement She was on diuretic which was discontinued (3) HTN (hypertension) Plan: Stable Polina Costa MD Dec 31, 2016 20:23
[2016-12-31] MEDS: SODIUM CHLORIDE 0.9% FLUSH 10 ML FLUSH IV FLUSH SCH (21:21)
[2016-12-31] MEDS: NS + KCL 20 MEQ INJ 1,000 ML IV SCH (21:21)
[2017-01-01 04:00] VITALS: BP 142/77; PULSE 77; RESP 18; TEMP 98.1; O2SAT 100
[2017-01-01] MEDS: NS + KCL 20 MEQ INJ 1,000 ML IV SCH (06:26)
[2017-01-01 06:42] LABS: AUTOMATED NEUTROPHIL # 1.4 TH/MM3 (1.8-7.7); BASOPHIL # 0.1 TH/MM3 (0-0.2); BASOPHIL % 1.7 % (0.0-2.0); EOSINOPHIL % 0.4 % (0.0-4.0); HEMATOCRIT 32.9 % (35.0-46.0); HEMO FLAGS DIFF FINAL; LYMPH % 51.8 % (9.0-44.0); LYMPHOCYTE # 1.9 TH/MM3 (1.0-4.8); MEAN CELL VOLUME 116.8 FL (80.0-100.0); MEAN CORPUSCULAR HEMOGLOBIN 39.5 PG (27.0-34.0); MEAN CORPUSCULAR HGB CONC 33.8 % (32.0-36.0); MONO % 10.2 % (0.0-8.0); NEUT % 35.9 % (16.0-70.0); PLATELET COUNT 242 TH/MM3 (150-450); RED BLOOD COUNT 2.82 MIL/MM3 (4.00-5.30); RED CELL DISTRIBUTION WIDTH 11.7 % (11.6-17.2); WHITE BLOOD COUNT 3.8 TH/MM3 (4.0-11.0)
[2017-01-01 06:57] LABS: BICARBONATE 26.8 MEQ/L (21.0-32.0); INDIRECT BILIRUBIN 2.3 MG/DL (0.0-0.8); POTASSIUM 3.6 MEQ/L (3.5-5.1); TOTAL BILIRUBIN ADULT 2.7 MG/DL (0.2-1.0)
[2017-01-01 07:23] VITALS: BP 142/77; PULSE 77; RESP 18; TEMP 98.1; O2SAT 100
--- NOTE | 2017-01-01 08:45 | HHI.PR ---
Subjective History of Present Illness Patient nausea/ vomiting better getting endoscopy today GI/ General surgery input noted s/p Gall bladder ultrasound. Review of Systems Constitutional Constitutional: Fatigue, Weakness GI/Abdomen GI/Abdominal Exam: Nausea Vitals/Results Intake & Output 12/31/16 12/31/16 01/01/17 15:00 23:00 07:00 Intake Total 1200 ml 800 ml Balance 1200 ml 800 ml Intake IV Total 1200 ml 800 ml # Voids 1 1 Vital Signs Vital Signs Date Time Temp Pulse Resp B/P Pulse Ox O2 Delivery O2 Flow Rate FiO2 01/01/17 07:23 98.1 77 18 142/77 100 01/01/17 04:00 98.1 77 18 142/77 100 12/31/16 23:35 98.0 73 16 146/79 100 12/31/16 20:00 98.6 69 18 151/81 99 12/31/16 20:00 92 12/31/16 16:00 84 12/31/16 16:00 97.7 71 18 145/75 100 12/31/16 12:00 94 12/31/16 12:00 97.5 73 18 168/80 100 12/31/16 11:23 82 16 152/69 99 CBC/BMP: 01/01/17 0535 01/01/17 0535 Lab Results Laboratory Tests Test 12/31/16 01/01/17 10:31 05:35 Urine Osmolality 128 MOSM/KG White Blood Count 3.8 TH/MM3 Red Blood Count 2.82 MIL/MM3 Hemoglobin 11.1 GM/DL Hematocrit 32.9 % Mean Corpuscular Volume 116.8 FL Mean Corpuscular Hemoglobin 39.5 PG Mean Corpuscular Hemoglobin 33.8 % Concent Red Cell Distribution Width 11.7 % Platelet Count 242 TH/MM3 Mean Platelet Volume 7.7 FL Neutrophils (%) (Auto) 35.9 % Lymphocytes (%) (Auto) 51.8 % Monocytes (%) (Auto) 10.2 % Eosinophils (%) (Auto) 0.4 % Basophils (%) (Auto) 1.7 % Neutrophils # (Auto) 1.4 TH/MM3 Lymphocytes # (Auto) 1.9 TH/MM3 Monocytes # (Auto) 0.4 TH/MM3 Eosinophils # (Auto) 0.0 TH/MM3 Basophils # (Auto) 0.1 TH/MM3 CBC Comment DIFF FINAL Differential Comment Sodium Level 139 MEQ/L Potassium Level 3.6 MEQ/L Chloride Level 106 MEQ/L Carbon Dioxide Level 26.8 MEQ/L Anion Gap 6 MEQ/L Blood Urea Nitrogen 8 MG/DL Creatinine 0.64 MG/DL Estimat Glomerular Filtration 91 ML/MIN Rate Random Glucose 94 MG/DL Calcium Level 7.8 MG/DL Total Bilirubin 2.7 MG/DL Direct Bilirubin 0.4 MG/DL Indirect Bilirubin 2.3 MG/DL Aspartate Amino Transf 21 U/L (AST/SGOT) Alanine Aminotransferase 23 U/L (ALT/SGPT) Alkaline Phosphatase 64 U/L Total Protein 6.3 GM/DL Albumin 3.5 GM/DL Physical Exam General General Appearance: Well Developed, Well Nourished, No Acute Distress, Comfortable Eyes Eye Exam: Pupils Equal, Pupils Reactive, Sclera White, Extraocular Movement Intact Throat Throat Exam: Oral Mucosa [place] & Moist, Oral Pharynx Normal Neck Neck Exam: Neck Supple, Trachea Midline Pulmonary Resp Exam: Clear Bilaterally, Breath Sounds Equal, No Distress Cardiology CV Exam: Regular, Normal Sinus Rhythm Gastrointestinal/Abdomen GI Exam: Soft, Non-Tender, Bowel Sounds Present Musculoskeletal MS Exam: Normal Tone Integumentary Skin Exam: Clear, Warm, Dry, Intact Extremeties Extremities Exam: No Edema Neurologic Neuro Exam: Alert, No Focal Deficits VTE Prophylaxis VTE Prophylaxis Meds: Heparin PUD Prophylasis PUD Prophylaxis: Protonix Assessment/Plan Assessment/Plan ASSESSMENT AND PLAN: 1. This is a 77-year-old female who presented to the emergency room and diagnosed with nausea and vomiting with mild abdominal discomfort. The patient has gallstones. General surgery input noted for their recommendations for gallstones..s/p Gall bladder ultrasound. and also Gastroenterology input noted getting endoscopy today.. 2. Hypokalemia. resolved 3. Hyponatremia. resolved. 4. History of hypertension. Continue home medications. 5. History of hypothyroidism. Continue with levothyroxine. Checked TSH and free T4...noted. 6. DVT prophylaxis with heparin 5000 units subcutaneous twice a day. 7. GI prophylaxis. Protonix 40 milligrams p.o. daily. We are going to manage the patient on a daily basis and make recommendations on a daily basis. Check CBC with diff CMP in AM. Discussed Condition with: Patient Jimbo Block MD Jan 01, 2017 08:45
[2017-01-01] MEDS ORDERED: PROPOFOL 200 MG/20 ML AMP IV ONE (08:46)
[2017-01-01] MEDS: SODIUM CHLORIDE 0.9% FLUSH 10 ML FLUSH IV FLUSH SCH (09:00)
--- NOTE | 2017-01-01 09:01 | GIPROC ---
[facility] [address] [place] [address], [id number] EGD PROCEDURE REPORT EXAM DATE: 01/01/2017 PATIENT NAME: Tatum Koch MR #: [id number] BIRTHDATE: 1940 ATTENDING: Mdadie Baker MD ORDER #: [id number] HISTORIC INTERPRETER: Frank Tatum and Neftaly Kahn STATUS: inpatient INDICATIONS: The patient is a 76 yr old female here for an EGD due to abdominal pain, vomiting, and nausea PROCEDURE PERFORMED: EGD w/ biopsy EGD w/ snare technique MEDICATIONS: None and Per Anesthesia. TOPICAL ANESTHETIC: none CONSENT: The patient understands the risks and benefits of the procedure and understands that these risks include, but are not limited to: sedation, allergic reaction, infection, perforation and/or bleeding. Alternative means of evaluation and treatment include, among others: physical exam, x-rays, and/or surgical intervention. The patient elects to proceed with this endoscopic procedure. medical equipment was checked for proper function. Hand hygiene and appropriate measures for infection prevention was taken. After the risks, benefits and alternatives of the procedure were thoroughly explained, Informed consent was verified, confirmed and timeout was successfully executed by the treatment team. The patient was anesthetized with topical anesthesia and the Pentax EG-[id number] endoscope was introduced through the mouth and advanced to the second portion of the duodenum. Retroflexed views revealed no abnormalities The gastroscope was then slowly withdrawn and removed. Few small gastric polyps in the body of the stomach, one removed by snare. Moderate gastritis Bx from antrum. Mild esophagitis grade B Bx from EG junction. The endoscopy was otherwise normal. ADVERSE EVENTS: There were no complications. IMPRESSIONS: 1. Few small gastric polyps in the body of the stomach, one removed by snare 2. Moderate gastritis Bx from antrum 3. Mild esophagitis grade B Bx from EG junction 4. Normal endoscopy otherwise 5. Retroflexed views revealed no abnormalities RECOMMENDATIONS: 1. Await biopsy results. Biopsy results will not be ready for 7-10 days. If you don't hear from us in two weeks, call our office for biopsy results. 2. Anti-reflux regimen 3. Avoid NSAIDS 4. Protonix 40mg Q AM PATIENT CONDITION: stable DISPOSITION: Inpatient REPEAT EXAM: Return as needed for EGD Maddie Baker MD eSigned: Maddie Baker MD 01/01/2017 9:00 AM cc: PATIENT NAME: Tatum Koch MR#: [id number]
--- NOTE | 2017-01-01 09:04 | HHI.GIFU ---
Subjective Remarks feels ok, no N/V today Objective Vitals I&O Vital Signs Date Time Temp Pulse Resp B/P Pulse Ox O2 Delivery O2 Flow Rate FiO2 01/01/17 07:23 98.1 77 18 142/77 100 01/01/17 04:00 98.1 77 18 142/77 100 12/31/16 23:35 98.0 73 16 146/79 100 12/31/16 20:00 98.6 69 18 151/81 99 12/31/16 20:00 92 12/31/16 16:00 84 12/31/16 16:00 97.7 71 18 145/75 100 12/31/16 12:00 94 12/31/16 12:00 97.5 73 18 168/80 100 12/31/16 11:23 82 16 152/69 99 I/O 12/31/16 12/31/16 12/31/16 01/01/17 01/01/17 01/01/17 07:00 15:00 23:00 07:00 15:00 23:00 Intake Total 1200 ml 800 ml Balance 1200 ml 800 ml Intake IV Total 1200 ml 800 ml # Voids 1 1 Laboratory Laboratory Tests Test 12/31/16 01/01/17 10:31 05:35 Urine Osmolality 128 White Blood Count 3.8 Red Blood Count 2.82 Hemoglobin 11.1 Hematocrit 32.9 Mean Corpuscular Volume 116.8 Mean Corpuscular Hemoglobin 39.5 Mean Corpuscular Hemoglobin 33.8 Concent Red Cell Distribution Width 11.7 Platelet Count 242 Mean Platelet Volume 7.7 Neutrophils (%) (Auto) 35.9 Lymphocytes (%) (Auto) 51.8 Monocytes (%) (Auto) 10.2 Eosinophils (%) (Auto) 0.4 Basophils (%) (Auto) 1.7 Neutrophils # (Auto) 1.4 Lymphocytes # (Auto) 1.9 Monocytes # (Auto) 0.4 Eosinophils # (Auto) 0.0 Basophils # (Auto) 0.1 CBC Comment DIFF FINAL Differential Comment Sodium Level 139 Potassium Level 3.6 Chloride Level 106 Carbon Dioxide Level 26.8 Anion Gap 6 Blood Urea Nitrogen 8 Creatinine 0.64 Estimat Glomerular Filtration 91 Rate Random Glucose 94 Calcium Level 7.8 Total Bilirubin 2.7 Direct Bilirubin 0.4 Indirect Bilirubin 2.3 Aspartate Amino Transf 21 (AST/SGOT) Alanine Aminotransferase 23 (ALT/SGPT) Alkaline Phosphatase 64 Total Protein 6.3 Albumin 3.5 Physical Exam HEENT: Pupils round and reactive to light; normocephalic; atraumatic; no jaundice. Throat is clear. NECK: Neck is supple, no JVD, no lymphadenopathy. CHEST: Chest is clear to auscultation and percussion. CARDIAC: Regular rate and rhythm with no murmur gallop or rubs. ABDOMEN: Soft, nondistended, nontender; no hepatosplenomegaly; bowel sounds are present in all four quadrants. EXTREMITIES: No clubbing, cyanosis, or edema. SKIN: Normal; no rash; no jaundice. [employer]: No focal deficits; alert and oriented times three. Assessment and Plan Plan Abdominal discomfort with complaints of nausea and vomiting with alternating diarrhea and constipation with reported chills but no fever with noted hyperbilirubinemia but unremarkable CT except for gallstones with hyponatremia and hypokalemia, symptom resolving, EGD today showed gastritis, Bx done, gastric polyps and mild esophagitis. await result MRCP Monitor labs We will need to correct electrolytes continue PPI Maddie Baker MD Jan 01, 2017 09:04
[2017-01-01] MEDS: HEPARIN SODIUM - SQ 10,000 UNITS/ML VIAL SQ SCH (09:29)
[2017-01-01 12:00] VITALS: BP 171/93; PULSE 66; RESP 17; TEMP 96.9; O2SAT 100
--- NOTE | 2017-01-01 12:26 | RADRPT ---
EXAM DATE/TIME: 01/01/2017 10:02 [facility] COMPARISON: CT ABDOMEN & PELVIS W/O CONTRAST, December 31, 2016, 7:38. INDICATIONS : Right upper quadrant pain. MEDICAL HISTORY : Hypertension. Hepatitis A. SURGICAL HISTORY : Tonsillectomy. ENCOUNTER: Initial ACUITY: 3 days PAIN SCORE: 3/10 LOCATION: Right upper chest MEASUREMENTS: LIVER: 17.2 cm length COMMON DUCT: 7 mm RIGHT KIDNEY: 11.1 x 4.5 x 7.0 cm FINDINGS: LIVER: Normal echotexture without focal lesion or ductal dilatation. COMMON DUCT: No intraluminal mass or stone visualized. GALLBLADDER: Mobile solitary 1.4 cm gallstone. No significant gallbladder wall thickening, pericholecystic fluid, or sonographic Ford sign. PANCREAS: The visualized portions are within normal limits. RIGHT KIDNEY: No evidence of hydronephrosis, stone, or mass. CONCLUSION: 1. Cholelithiasis without definitive sonographic evidence for acute cholecystitis. Willie Wakefield MD on January 01, 2017 at 12:18 Board Certified Radiologist. This report was verified electronically.
--- NOTE | 2017-01-01 12:38 | RADRPT ---
EXAM DATE/TIME: 01/01/2017 11:13 [facility] COMPARISON: CT ABDOMEN & PELVIS W/O CONTRAST, December 31, 2016, 7:38. US ABDOMEN - GALLBLADDER, January 01, 2017, 10:0 2. INDICATIONS : Obstruction. Gallstones with elevated bilirubin. MEDICAL HISTORY : Hepatitis A. Hypertension. SURGICAL HISTORY : Tonsillectomy. ENCOUNTER: Initial ACUITY: 2 months PAIN SCORE: 6/10 LOCATION: Right upper quadrant TECHNIQUE: Multiplanar, multisequence magnetic resonance imaging of the abdomen was performed. High-resolution 3D dataset was utilized to reconstruct maximum-intensity projection (MIP) images. FINDINGS: The gallbladder demonstrates multiple stones without gallbladder wall thickening, or pericholecy stic fluid. Common bile duct measures 5 mm without filling defects. There is an approximate 1.4 cm le nadeem in right hepatic lobe laterally which demonstrates T2 prolongation not adequately characterized. The spleen, pancreas, kidneys, adrenals are unremarkable. CONCLUSION: 1. Cholelithiasis. 2. 3. Indeterminate right hepatic lobe lesion and follow up is suggested with abdominal MRI with intrave nous contrast in 6 months. Little Jose MD on January 01, 2017 at 12: 4. 32 Board Certified Radiologist. This report was verified electronically.
--- NOTE | 2017-01-01 14:59 | HHI.PR ---
Subjective Subjective Notes She feels much better today. Had EGD this am showing gastritis and esophagitis. Had liquid stool. Objective Vitals/I&O Vital Signs Date Time Temp Pulse Resp B/P Pulse Ox O2 Delivery O2 Flow Rate FiO2 01/01/17 12:00 96.9 66 17 171/93 100 12/31/16 07:43 Room Air Labs Laboratory Tests Test 01/01/17 05:35 White Blood Count 3.8 Red Blood Count 2.82 Hemoglobin 11.1 Hematocrit 32.9 Mean Corpuscular Volume 116.8 Mean Corpuscular Hemoglobin 39.5 Mean Corpuscular Hemoglobin 33.8 Concent Red Cell Distribution Width 11.7 Platelet Count 242 Mean Platelet Volume 7.7 Neutrophils (%) (Auto) 35.9 Lymphocytes (%) (Auto) 51.8 Monocytes (%) (Auto) 10.2 Eosinophils (%) (Auto) 0.4 Basophils (%) (Auto) 1.7 Neutrophils # (Auto) 1.4 Lymphocytes # (Auto) 1.9 Monocytes # (Auto) 0.4 Eosinophils # (Auto) 0.0 Basophils # (Auto) 0.1 CBC Comment DIFF FINAL Differential Comment Sodium Level 139 Potassium Level 3.6 Chloride Level 106 Carbon Dioxide Level 26.8 Anion Gap 6 Blood Urea Nitrogen 8 Creatinine 0.64 Estimat Glomerular Filtration 91 Rate Random Glucose 94 Calcium Level 7.8 Total Bilirubin 2.7 Direct Bilirubin 0.4 Indirect Bilirubin 2.3 Aspartate Amino Transf 21 (AST/SGOT) Alanine Aminotransferase 23 (ALT/SGPT) Alkaline Phosphatase 64 Total Protein 6.3 Albumin 3.5 Radiology Last Impressions Abdomen/Pelvis CT 12/31/16 0721 Signed Impressions: Service Date/Time: Saturday, December 31, 2016 07:38 - CONCLUSION: 1. Gallstones prominent gallbladder without inflammatory changes 2. Moderate vascular calcifications 3. Degenerative changes lumbar spine. David Coyne MD FACR Narrative Exam NAD Abd: soft, nontender, nondistended A/P Assessment and Plan 76 yo F with chronic constipation, gallstones, elevated bilirubin. Improving. EGD showed gastritis/esophagitis. U/s shows stones, no wall thickening. MRCP same. No CBD stones. No evidence of cholecystitis. I do not recommend cholecystectomy at this time. Unsure etiology of hyperbilirubinemia, which is slightly improved. Can f/u with me as an outpatient if has symptoms consistent with biliary colic. Will s/ o and be available as needed. Delmar Ann MD Jan 01, 2017 14:59
[2017-01-01 16:00] VITALS: BP 152/80; PULSE 76; RESP 18; TEMP 97.9; O2SAT 97
[2017-01-01] MEDS ORDERED: PRIL20TA2 PO (17:35)
== END 2017-01-01 18:20 | disposition home or self-care (01) | DRG 445 ==
LOC: PHED 07:00 → PHEDA 09:35 → PH3A 11:54 → OBSVTOIN 01-01 08:44
PROVIDERS: ADMIT Family Medicine; ATTEND Family Medicine
PROC: 0DB48ZX Excision of Esophagogastric Junction, Via Natural or Artificial Opening Endoscopic, Diagnostic (ICD-10-PCS; 2017-01-01)
PROC: 0DB78ZX Excision of Stomach, Pylorus, Via Natural or Artificial Opening Endoscopic, Diagnostic (ICD-10-PCS; 2017-01-01)
PROC: 0DB78ZZ Excision of Stomach, Pylorus, Via Natural or Artificial Opening Endoscopic (ICD-10-PCS; principal; 2017-01-01 08:38)
DX: K80.20 Calculus of gallbladder without cholecystitis without obstruction (principal); E87.1 Hypo-osmolality and hyponatremia; I10 Essential (primary) hypertension; E86.0 Dehydration; R11.2 Nausea with vomiting, unspecified; E03.9 Hypothyroidism, unspecified; E87.6 Hypokalemia; Z86.14 Personal history of Methicillin resistant Staphylococcus aureus infection; F43.9 Reaction to severe stress, unspecified; K29.70 Gastritis, unspecified, without bleeding; K20.9 Esophagitis, unspecified; K31.7 Polyp of stomach and duodenum; K59.09 Other constipation; E80.6 Other disorders of bilirubin metabolism
CPT/HCPCS: 74176; 74181; 76377; 76705; 80048; 80053; 80076; 81001; 83690; 83735; 83930; 83935; 84439; 84443; 84484; 85025; 85610; 85730; 87641; 88305; 88312; 93005; 96361; 96365; 96375; G0378; J1644; J2060; J2405; J3480; J7030; J7050